=== PATIENT | male | born 1945 | race Caucasian/White ===

== ENCOUNTER 2018-07-15 14:07 | Emergency (ER) | payer MEDICARE ==
[~2018-07-15 14:07] MED LIST: ALBU8.5H8 IH; ASPI-1012 PO; ATOR20TA65 PO; DIGOXIN PO; DILT180T12 PO; FURO20TA4 PO; LORA0.5T2 PO; METFORMIN PO; METOPROLOL PO; OMEP20CA4 PO; POTASSIUM PO; UMEC1DIS IH
[2018-07-15 14:24] LABS: BASOPHILS % (AUTO) 0.2 % (0.0-5.0); EOSINOPHILS % (AUTO) 0.2 % (0.0-8.0); HEMATOCRIT 41.1 % (42-54); LYMPHOCYTES % (AUTO) 6.5 % (21.0-51.0); MEAN CORPUSCULAR HGB CONC 32.1 g/dL (32.0-36.0); MEAN CORPUSCULAR VOLUME 84.2 fL (79-99); MONOCYTES % (AUTO) 6.5 % (3.0-13.0); NEUTROPHILS % (AUTO) 86.6 % (40.0-77.0); PLATELET COUNT (AUTO) 234 K/uL (130-400); RED BLOOD CELL COUNT(AUTO) 4.88 MIL/uL (4.50-6.20); RED CELL DISTRIBUTION WIDTH 14.3 % (11.0-15.5); WHITE BLOOD COUNT (AUTO) 12.2 K/uL (4.8-10.8)
[2018-07-15 14:35] LABS: CREATININE 1.2 mg/dL (0.5-1.5); POTASSIUM 3.7 mmol/L (3.5-5.1)
[2018-07-15 14:42] LABS: ALBUMIN 3.5 g/dL (3.5-5.0); BILIRUBIN,TOTAL 0.8 mg/dL (0.2-1.0); TOTAL PROTEIN, SERUM 8.2 g/dL (6.0-8.3)
[2018-07-15 14:54] LABS: APPEARANCE,URINE Clear (CLEAR); BILIRUBIN,URINE Negative (NEGATIVE); COLOR,URINE Yellow (YELLOW); GLUCOSE, URINE (UA) Negative (NEGATIVE); KETONES,URINE Negative (NEGATIVE); LEUKOCYTE ESTERASE ,URINE Trace (NEGATIVE); NITRATE,URINE Negative (NEGATIVE); OCCULT BLOOD,URINE Negative (NEGATIVE); PROTEIN,URINE Negative (NEGATIVE)
[2018-07-15 15:12] LABS: B-TYPE NATRIURETIC PEPTIDE 117 pg/mL (0-100)
[2018-07-15 15:21] LABS: BACTERIA,URINE None Seen /HPF (None Seen); RBC,URINE None Seen /HPF (0-1)
[2018-07-15 15:22] LABS: SQUAMOUS EPITHELIAL CELL,UR None Seen /HPF (0-2); WBC,URINE 0-1 /HPF (0-1)
[2018-07-15 15:27] LABS: PROTHROMBIN TIME 10.5 SEC (9.6-11.6)
[2018-07-15] MEDS ORDERED: MORPHINE SULFATE 4 MG/1ML SYG ONE (19:23)
== END 2018-07-15 19:35 | disposition home or self-care (01) ==
LOC: EDH 14:07
DX: S39.012A Strain of muscle, fascia and tendon of lower back, initial encounter (principal); R60.0 Localized edema; J44.9 Chronic obstructive pulmonary disease, unspecified; I48.91 Unspecified atrial fibrillation; E11.9 Type 2 diabetes mellitus without complications; I50.9 Heart failure, unspecified; E78.5 Hyperlipidemia, unspecified; I25.10 Atherosclerotic heart disease of native coronary artery without angina pectoris; Z88.8 Allergy status to other drugs, medicaments and biological substances; Z79.82 Long term (current) use of aspirin; Z79.84 Long term (current) use of oral hypoglycemic drugs; Z79.899 Other long term (current) drug therapy; Z87.891 Personal history of nicotine dependence; X50.9XXA Other and unspecified overexertion or strenuous movements or postures, initial encounter; Y93.89 Activity, other specified; Y92.89 Other specified places as the place of occurrence of the external cause; Y99.8 Other external cause status
CPT/HCPCS: 36415; 71045; 72100; 74018; 80053; 81001; 83605 ×2; 83880; 84484; 85025; 85610; 85730; 93005; 96372; 99285; J2270

== ENCOUNTER 2018-07-22 13:05 | Inpatient (IN) | payer MEDICARE ==
[~2018-07-22] VITALS: Ht 185.4 cm; Wt 98.2 kg
[2018-07-22 13:32] LABS: BASOPHILS % (AUTO) 0.2 % (0.0-5.0); EOSINOPHILS % (AUTO) 0.7 % (0.0-8.0); HEMATOCRIT 41.5 % (42-54); MEAN CORPUSCULAR HEMOGLOBIN 28.1 pg (27.0-33.0); MEAN CORPUSCULAR HGB CONC 33.7 g/dL (32.0-36.0); MEAN CORPUSCULAR VOLUME 83.4 fL (79-99); MONOCYTES % (AUTO) 9.2 % (3.0-13.0); NEUTROPHILS % (AUTO) 80.9 % (40.0-77.0); PLATELET COUNT (AUTO) 303 K/uL (130-400); RED BLOOD CELL COUNT(AUTO) 4.97 MIL/uL (4.50-6.20); RED CELL DISTRIBUTION WIDTH 14.8 % (11.0-15.5); WHITE BLOOD COUNT (AUTO) 14.2 K/uL (4.8-10.8)
[2018-07-22 13:41] LABS: CREATININE 1.7 mg/dL (0.5-1.5); POTASSIUM 4.6 mmol/L (3.5-5.1)
[2018-07-22 13:46] LABS: ALBUMIN 3.5 g/dL (3.5-5.0); BILIRUBIN,TOTAL 0.9 mg/dL (0.2-1.0); TOTAL PROTEIN, SERUM 8.5 g/dL (6.0-8.3)
[2018-07-22 13:59] LABS: INR 0.98 (0.85-1.15); PARTIAL THROMBOPLASTIN TIME 29.5 SEC (26.3-35.5); PROTHROMBIN TIME 10.3 SEC (9.6-11.6)
[2018-07-22 14:03] LABS: B-TYPE NATRIURETIC PEPTIDE 85 pg/mL (0-100)
[2018-07-22] MEDS ORDERED: FUROSEMIDE 10 MG/ML 4ML VIAL ONE (14:04)
[2018-07-22] MEDS ORDERED: FUROSEMIDE 10 MG/ML 2ML VIAL ONE (14:04)
[2018-07-22] MEDS ORDERED: CLONIDINE HCL 0.1 MG TABLET PO PRN (17:00)
[2018-07-22] MEDS ORDERED: NITROGLYCERIN 0.4 MG SL TAB SL PRN (17:00)
[2018-07-22] MEDS ORDERED: POTASSIUM CHLORIDE 20MEQ/100ML 100 ML IV PRN (17:00)
[2018-07-22] MEDS ORDERED: POTASSIUM CHLORIDE 10% ELIXIR 20 MEQ/15 ML UDCUP PO PRN (17:00)
[2018-07-22] MEDS ORDERED: DIPHENHYDRAMINE HCL 25 MG CAPSULE PO PRN (17:00)
[2018-07-22] MEDS ORDERED: DEXTROSE 50%-WATER 50 ML DISP.SYRIN IV PRN (17:00)
[2018-07-22] MEDS ORDERED: SODIUM CHLORIDE 0.9% 10 ML VIAL IVP SCH (17:00)
[2018-07-22] MEDS ORDERED: GUAIFENESIN-DM 200/20 MG 10 ML PO PRN (17:00)
[2018-07-22] MEDS ORDERED: GLUCAGON 1MG KIT 1 MG ML IM PRN (17:00)
[2018-07-22] MEDS ORDERED: ONDANSETRON HCL 4 MG/2 ML VIAL IVP PRN (17:00)
[2018-07-22] MEDS ORDERED: ACETAMINOPHEN 325 MG TAB PO PRN (17:00)
[2018-07-22] MEDS ORDERED: POTASSIUM CHLORIDE 20 MEQ ERTAB PO PRN (17:00)
[2018-07-22] MEDS ORDERED: ZOLPIDEM TARTRATE 5 MG TAB PO PRN (17:00)
[2018-07-22] MEDS ORDERED: LIDOCAINE HCL-MPF 1% 2ML VIAL IJ PRN (17:00)
[2018-07-22] MEDS ORDERED: MAG HYDROX/AL HYDROX/SIMETH ES 30 ML SUSP UDCUP PO PRN (17:00)
[2018-07-22] MEDS ORDERED: DiphenhydrAMINE HCL 50 MG/ML VIAL IVP PRN (17:00)
[2018-07-22 17:20] VITALS: BP 161/83
[2018-07-22] MEDS: LEVOFLOXACIN 500 MG/D5W 100 ML 100 ML IV SCH (18:33)
[2018-07-22] MEDS ORDERED: DIGO125T87 PO (19:35)
[2018-07-22] MEDS ORDERED: POTA99TA21 PO (19:35)
[2018-07-22] MEDS ORDERED: TYL3 PO (19:35)
[2018-07-22] MEDS ORDERED: FURO80TA3 PO (19:35)
[2018-07-22] MEDS ORDERED: OMEP40CA37 PO (19:35)
[2018-07-22] MEDS ORDERED: LORA0.5P MC (19:35)
[2018-07-22] MEDS ORDERED: DILT180C86 PO (19:35)
[2018-07-22] MEDS ORDERED: FLUT16H NASAL (19:35)
[2018-07-22] MEDS ORDERED: PRED10TA3 PO (19:35)
[2018-07-22] MEDS ORDERED: SIMV40TA5 PO (19:35)
[2018-07-22] MEDS ORDERED: METO-391 PO (19:35)
[2018-07-22] MEDS ORDERED: ASPI-1026 PO (19:41)
[2018-07-22] MEDS ORDERED: TRAZ-185 PO (19:41)
[2018-07-22] MEDS ORDERED: ALBU8.5H8 IH (19:44)
[2018-07-22 20:00] VITALS: BP 128/74
[2018-07-22] MEDS: ACETAMINOPHEN 325 MG TAB PO PRN (20:34)
[2018-07-22] MEDS: INSULIN R PO SSI SQ SCH (20:36)
[2018-07-23] VITALS (7 sets, daily range): BP systolic 95–125; BP diastolic 65–78
[2018-07-23] MEDS: ACETAMINOPHEN 325 MG TAB PO PRN (00:20)
[2018-07-23] MEDS: FUROSEMIDE 10 MG/ML 4ML VIAL IVP SCH ×2 (00:33→16:19)
[2018-07-23 04:31] LABS: MEAN CORPUSCULAR HGB CONC 32.3 g/dL (32.0-36.0); MEAN CORPUSCULAR VOLUME 83.7 fL (79-99); PLATELET COUNT (AUTO) 250 K/uL (130-400); RED BLOOD CELL COUNT(AUTO) 4.67 MIL/uL (4.50-6.20); RED CELL DISTRIBUTION WIDTH 14.4 % (11.0-15.5); WHITE BLOOD COUNT (AUTO) 12.4 K/uL (4.8-10.8)
[2018-07-23 04:50] LABS: ALBUMIN 3.1 g/dL (3.5-5.0); BILIRUBIN,TOTAL 0.9 mg/dL (0.2-1.0); CREATININE 1.5 mg/dL (0.5-1.5); POTASSIUM 3.9 mmol/L (3.5-5.1); TOTAL PROTEIN, SERUM 7.5 g/dL (6.0-8.3)
[2018-07-23] MEDS: INSULIN R PO SSI SQ SCH ×4 (06:31→21:00)
[2018-07-23] MEDS: LACTULOSE 20 GM/30 ML UDCUP PO PRN (11:08)
[2018-07-23] MEDS: LEVOFLOXACIN 500 MG/D5W 100 ML 100 ML IV SCH (16:17)
[2018-07-23] MEDS: CADEXOMER IODINE 40 GM GEL TP SCH (16:24)
[2018-07-23] MEDS ORDERED: VENTOLIN HFA IH PRN (16:45)
[2018-07-23] MEDS ORDERED: ACETAMINOPHEN-CODEINE 300/30MG TAB PO PRN (16:45)
[2018-07-23] MEDS: PANTOPRAZOLE SODIUM 40 MG TABLET.DR PO SCH (18:48)
[2018-07-23] MEDS: SIMVASTATIN 20 MG TABLET PO SCH (18:48)
[2018-07-23] MEDS: TRAZODONE HCL 50 MG TAB PO SCH (18:48)
[2018-07-23] MEDS: ASPIRIN 325 MG TABLET PO SCH (18:48)
[2018-07-23] MEDS: LORAZEPAM 0.5 MG TABLET PO SCH (21:52)
[2018-07-23] MEDS: DILTIAZEM HCL 180 MG CAP.SR.24H PO SCH (21:52)
[2018-07-23] MEDS: FLUTICASONE PROPIONATE 50MCG/SPRAY 16 GM BOTTLE NS SCH (21:53)
[2018-07-24] MEDS: FUROSEMIDE 10 MG/ML 4ML VIAL IVP SCH ×2 (01:13→14:11)
[2018-07-24 03:00] VITALS: BP 129/86
[2018-07-24] MEDS: HYDROCODONE/ACETAMINOPHEN 5/325 MG TAB PO PRN ×2 (04:15→11:27)
[2018-07-24 04:28] LABS: BASOPHILS % (AUTO) 0.4 % (0.0-5.0); EOSINOPHILS % (AUTO) 0.8 % (0.0-8.0); HEMATOCRIT 40.7 % (42-54); LYMPHOCYTES % (AUTO) 8.8 % (21.0-51.0); MEAN CORPUSCULAR HEMOGLOBIN 27.6 pg (27.0-33.0); MEAN CORPUSCULAR VOLUME 83.5 fL (79-99); MONOCYTES % (AUTO) 12.5 % (3.0-13.0); NEUTROPHILS % (AUTO) 77.5 % (40.0-77.0); PLATELET COUNT (AUTO) 310 K/uL (130-400); RED BLOOD CELL COUNT(AUTO) 4.87 MIL/uL (4.50-6.20); RED CELL DISTRIBUTION WIDTH 14.4 % (11.0-15.5); WHITE BLOOD COUNT (AUTO) 13.4 K/uL (4.8-10.8)
[2018-07-24 04:56] LABS: ALBUMIN 3.2 g/dL (3.5-5.0); CREATININE 1.6 mg/dL (0.5-1.5); POTASSIUM 3.7 mmol/L (3.5-5.1); TOTAL PROTEIN, SERUM 8.3 g/dL (6.0-8.3)
[2018-07-24] MEDS: INSULIN R PO SSI SQ SCH ×4 (06:10→21:00)
[2018-07-24 08:00] VITALS: BP 121/61
[2018-07-24] MEDS: CADEXOMER IODINE 40 GM GEL TP SCH (09:00)
[2018-07-24] MEDS: POTASSIUM GLUCONATE 99 MG PO SCH (09:00)
[2018-07-24] MEDS: Metoprolol Succinate 50 MG PO SCH (09:00)
[2018-07-24] MEDS: FLUTICASONE PROPIONATE 50MCG/SPRAY 16 GM BOTTLE NS SCH ×2 (09:00→21:00)
[2018-07-24] MEDS: PREDNISONE 10 MG TABLET PO SCH (11:05)
[2018-07-24] MEDS: DILTIAZEM HCL 180 MG CAP.SR.24H PO SCH ×2 (11:06→21:16)
[2018-07-24] MEDS: LORAZEPAM 0.5 MG TABLET PO SCH ×2 (11:06→21:16)
[2018-07-24 12:00] VITALS: BP 127/65
[2018-07-24 15:52] VITALS: BP 103/62
[2018-07-24] MEDS: DIGOXIN 125 MCG TABLET PO SCH (16:05)
[2018-07-24] MEDS: SIMVASTATIN 20 MG TABLET PO SCH (16:55)
[2018-07-24] MEDS: TRAZODONE HCL 50 MG TAB PO SCH (16:56)
[2018-07-24] MEDS: ASPIRIN 325 MG TABLET PO SCH (16:56)
[2018-07-24] MEDS: LEVOFLOXACIN 500 MG/D5W 100 ML 100 ML IV SCH (16:56)
[2018-07-24] MEDS: PANTOPRAZOLE SODIUM 40 MG TABLET.DR PO SCH (16:56)
[2018-07-24 19:00] VITALS: BP 118/65
[2018-07-24 23:00] VITALS: BP 103/78
[2018-07-25] MEDS: FUROSEMIDE 10 MG/ML 4ML VIAL IVP SCH ×2 (03:10→12:23)
[2018-07-25 04:04] VITALS: BP 114/65
[2018-07-25] MEDS: INSULIN R PO SSI SQ SCH ×4 (06:53→21:00)
[2018-07-25 08:04] VITALS: BP 101/66
[2018-07-25] MEDS: CADEXOMER IODINE 40 GM GEL TP SCH (08:34)
[2018-07-25] MEDS: LORAZEPAM 0.5 MG TABLET PO SCH ×2 (08:38→20:37)
[2018-07-25] MEDS: DILTIAZEM HCL 180 MG CAP.SR.24H PO SCH ×2 (08:38→20:37)
[2018-07-25] MEDS: PREDNISONE 10 MG TABLET PO SCH (08:38)
[2018-07-25] MEDS: POTASSIUM GLUCONATE 99 MG PO SCH (08:39)
[2018-07-25] MEDS: FLUTICASONE PROPIONATE 50MCG/SPRAY 16 GM BOTTLE NS SCH ×2 (08:40→20:46)
[2018-07-25] MEDS: Metoprolol Succinate 50 MG PO SCH (08:40)
[2018-07-25] MEDS: HYDROCODONE/ACETAMINOPHEN 5/325 MG TAB PO PRN ×2 (08:52→14:48)
[2018-07-25 11:44] VITALS: BP 117/71
[2018-07-25] MEDS: LACTULOSE 20 GM/30 ML UDCUP PO PRN (12:23)
[2018-07-25 16:00] VITALS: BP 96/60
[2018-07-25] MEDS: SIMVASTATIN 20 MG TABLET PO SCH (17:17)
[2018-07-25] MEDS: PANTOPRAZOLE SODIUM 40 MG TABLET.DR PO SCH (17:17)
[2018-07-25] MEDS: LEVOFLOXACIN 500 MG/D5W 100 ML 100 ML IV SCH (17:17)
[2018-07-25] MEDS: ASPIRIN 325 MG TABLET PO SCH (17:17)
[2018-07-25] MEDS: DIGOXIN 125 MCG TABLET PO SCH (17:21)
[2018-07-25] MEDS: TRAZODONE HCL 50 MG TAB PO SCH (17:21)
[2018-07-25 19:25] VITALS: BP 109/59
[2018-07-26] VITALS (7 sets, daily range): BP systolic 101–116; BP diastolic 52–78
[2018-07-26] MEDS: FUROSEMIDE 10 MG/ML 4ML VIAL IVP SCH ×2 (01:52→14:05)
[2018-07-26 03:54] LABS: BASOPHILS % (AUTO) 0.9 % (0.0-5.0); EOSINOPHILS % (AUTO) 1.9 % (0.0-8.0); HEMATOCRIT 35.3 % (42-54); LYMPHOCYTES % (AUTO) 10.5 % (21.0-51.0); MEAN CORPUSCULAR HEMOGLOBIN 27.8 pg (27.0-33.0); MEAN CORPUSCULAR HGB CONC 33.3 g/dL (32.0-36.0); MEAN CORPUSCULAR VOLUME 83.5 fL (79-99); MONOCYTES % (AUTO) 10.8 % (3.0-13.0); NEUTROPHILS % (AUTO) 75.9 % (40.0-77.0); PLATELET COUNT (AUTO) 295 K/uL (130-400); RED BLOOD CELL COUNT(AUTO) 4.23 MIL/uL (4.50-6.20); RED CELL DISTRIBUTION WIDTH 14.4 % (11.0-15.5); WHITE BLOOD COUNT (AUTO) 11.2 K/uL (4.8-10.8)
[2018-07-26 04:13] LABS: ALBUMIN 2.8 g/dL (3.5-5.0); BILIRUBIN,TOTAL 0.6 mg/dL (0.2-1.0); CREATININE 1.5 mg/dL (0.5-1.5); POTASSIUM 3.9 mmol/L (3.5-5.1); TOTAL PROTEIN, SERUM 7.4 g/dL (6.0-8.3)
[2018-07-26] MEDS: INSULIN R PO SSI SQ SCH ×4 (06:19→20:53)
[2018-07-26] MEDS: LORAZEPAM 0.5 MG TABLET PO SCH ×2 (08:49→20:46)
[2018-07-26] MEDS: Metoprolol Succinate 50 MG PO SCH (08:49)
[2018-07-26] MEDS: PREDNISONE 10 MG TABLET PO SCH (08:49)
[2018-07-26] MEDS: DILTIAZEM HCL 180 MG CAP.SR.24H PO SCH ×2 (08:49→20:46)
[2018-07-26] MEDS: POTASSIUM GLUCONATE 99 MG PO SCH (08:50)
[2018-07-26] MEDS: FLUTICASONE PROPIONATE 50MCG/SPRAY 16 GM BOTTLE NS SCH ×2 (08:53→20:52)
[2018-07-26] MEDS: CADEXOMER IODINE 40 GM GEL TP SCH (09:00)
[2018-07-26] MEDS: HYDROCODONE/ACETAMINOPHEN 5/325 MG TAB PO PRN ×2 (11:55→15:51)
[2018-07-26] MEDS: PANTOPRAZOLE SODIUM 40 MG TABLET.DR PO SCH (16:43)
[2018-07-26] MEDS: ASPIRIN 325 MG TABLET PO SCH (16:43)
[2018-07-26] MEDS: LEVOFLOXACIN 500 MG/D5W 100 ML 100 ML IV SCH (16:43)
[2018-07-26] MEDS: TRAZODONE HCL 50 MG TAB PO SCH (16:44)
[2018-07-26] MEDS: SIMVASTATIN 20 MG TABLET PO SCH (16:44)
[2018-07-26] MEDS: DIGOXIN 125 MCG TABLET PO SCH (16:44)
[2018-07-27] MEDS: FUROSEMIDE 10 MG/ML 4ML VIAL IVP SCH ×2 (01:50→14:36)
[2018-07-27 04:05] VITALS: BP 112/69
[2018-07-27] MEDS: HYDROCODONE/ACETAMINOPHEN 5/325 MG TAB PO PRN ×2 (06:20→23:47)
[2018-07-27] MEDS: INSULIN R PO SSI SQ SCH ×4 (06:50→21:00)
[2018-07-27 07:00] VITALS: BP 105/65
[2018-07-27] MEDS: Metoprolol Succinate 50 MG PO SCH (09:00)
[2018-07-27] MEDS: POTASSIUM GLUCONATE 99 MG PO SCH (09:00)
[2018-07-27] MEDS: CADEXOMER IODINE 40 GM GEL TP SCH (09:00)
[2018-07-27] MEDS: LORAZEPAM 0.5 MG TABLET PO SCH ×2 (09:17→21:00)
[2018-07-27] MEDS: DILTIAZEM HCL 180 MG CAP.SR.24H PO SCH ×2 (09:17→21:44)
[2018-07-27] MEDS: PREDNISONE 10 MG TABLET PO SCH (09:17)
[2018-07-27] MEDS: FLUTICASONE PROPIONATE 50MCG/SPRAY 16 GM BOTTLE NS SCH ×2 (09:18→21:00)
[2018-07-27 11:00] VITALS: BP_SYST 108; BP_SYST 111; BP_DIAS 55; BP_DIAS 61
[2018-07-27] MEDS: LACTULOSE 20 GM/30 ML UDCUP PO PRN (11:31)
[2018-07-27 16:00] VITALS: BP 109/70
[2018-07-27] MEDS: LEVOFLOXACIN 500 MG/D5W 100 ML 100 ML IV SCH (17:39)
[2018-07-27] MEDS: DIGOXIN 125 MCG TABLET PO SCH (17:39)
[2018-07-27] MEDS: PANTOPRAZOLE SODIUM 40 MG TABLET.DR PO SCH (17:39)
[2018-07-27] MEDS: ASPIRIN 325 MG TABLET PO SCH (17:39)
[2018-07-27] MEDS: TRAZODONE HCL 50 MG TAB PO SCH (17:39)
[2018-07-27] MEDS: SIMVASTATIN 20 MG TABLET PO SCH (17:39)
[2018-07-27 19:15] VITALS: BP 106/55
[2018-07-28 00:20] VITALS: BP 110/67
[2018-07-28] MEDS: FUROSEMIDE 10 MG/ML 4ML VIAL IVP SCH (02:15)
[2018-07-28 04:22] VITALS: BP 109/59
[2018-07-28] MEDS: INSULIN R PO SSI SQ SCH ×2 (06:34→11:30)
[2018-07-28 07:00] VITALS: BP 126/65
[2018-07-28] MEDS: Metoprolol Succinate 50 MG PO SCH (09:00)
[2018-07-28] MEDS: FLUTICASONE PROPIONATE 50MCG/SPRAY 16 GM BOTTLE NS SCH (09:00)
[2018-07-28] MEDS: POTASSIUM GLUCONATE 99 MG PO SCH (09:00)
[2018-07-28] MEDS: CADEXOMER IODINE 40 GM GEL TP SCH (09:00)
[2018-07-28] MEDS: PREDNISONE 10 MG TABLET PO SCH (09:03)
[2018-07-28] MEDS: LORAZEPAM 0.5 MG TABLET PO SCH (09:03)
[2018-07-28] MEDS: DILTIAZEM HCL 180 MG CAP.SR.24H PO SCH (09:03)
[2018-07-28] MEDS: LACTULOSE 20 GM/30 ML UDCUP PO PRN (09:03)
[2018-07-28 11:11] VITALS: BP 101/57
== END 2018-07-28 16:40 | disposition home health service (06) | DRG 603 ==
LOC: EDH 13:05 → OBSVTOIN 16:35 → EDHIP 16:35 → 3CH 17:13
PROVIDERS: ADMIT Family Medicine; ATTEND Family Medicine
PROC: 3E0234Z Introduction of Serum, Toxoid and Vaccine into Muscle, Percutaneous Approach (ICD-10-PCS; principal; 2018-07-24)
DX: L03.115 Cellulitis of right lower limb (principal); J96.11 Chronic respiratory failure with hypoxia; R60.0 Localized edema; J44.9 Chronic obstructive pulmonary disease, unspecified; I89.0 Lymphedema, not elsewhere classified; M85.80 Other specified disorders of bone density and structure, unspecified site; I48.91 Unspecified atrial fibrillation; I25.10 Atherosclerotic heart disease of native coronary artery without angina pectoris; I50.9 Heart failure, unspecified; E11.9 Type 2 diabetes mellitus without complications; E78.5 Hyperlipidemia, unspecified; I11.0 Hypertensive heart disease with heart failure; R23.0 Cyanosis; Z88.8 Allergy status to other drugs, medicaments and biological substances; Z99.81 Dependence on supplemental oxygen; Z23 Encounter for immunization
CPT/HCPCS: 36415; 71045; 73630; 80053; 82948; 83880; 84484; 85025; 85027; 85610; 85730; 93005; 93925; 93970; G0008; J1815; J1940; J1956; J7512; Q2038

== ENCOUNTER → 2018-09-11 | Outpatient (CLI) | payer MEDICARE ==
[~2018-09-11] MED LIST changes: -ASPI-1012 PO; +ASPI-1026 PO; -ATOR20TA65 PO; +DIGO125T87 PO; -DIGOXIN PO; +DILT180C86 PO; -DILT180T12 PO; +FLUT16H NASAL; -FURO20TA4 PO; +FURO80TA3 PO; +LORA0.5P MC; -LORA0.5T2 PO; -METFORMIN PO; +METO-391 PO; -METOPROLOL PO; -OMEP20CA4 PO; +OMEP40CA37 PO; +POTA99TA21 PO; -POTASSIUM PO; +PRED10TA3 PO; +SIMV40TA5 PO; +TRAZ-185 PO; +TYL3 PO; -UMEC1DIS IH
== END | disposition home or self-care (01) ==
LOC: SHCH 10:24
PROVIDERS: ATTEND Internal Medicine Cardiovascular Disease
DX: I48.2 Chronic atrial fibrillation (principal)
CPT/HCPCS: 93306